=== PATIENT | female | born 1970 | race Caucasian/White ===

== ENCOUNTER 2018-03-08 14:48 | Emergency (ER) | payer SELFPAY ==
[~2018-03-08] VITALS: Ht 167.6 cm; Wt 98.2 kg
[2018-03-08 14:54] VITALS: BP 132/84
== END 2018-03-08 15:53 | disposition left against medical advice (07) ==
LOC: ED 15:47
DX: M54.2 Cervicalgia (principal); Z53.21 Procedure and treatment not carried out due to patient leaving prior to being seen by health care provider